=== PATIENT | male | born 1990 | race Caucasian/White ===

== ENCOUNTER 2021-04-28 11:37 | Emergency (ER) | payer OTHER ==
[2021-04-28 11:50] VITALS: BP 133/73; PULSE 74; TEMP 98.9; BMI 29.0
[2021-04-28] MEDS ORDERED: ONDANSETRON 4 MG/2 ML VIAL IVPUSH ONE (12:29)
[2021-04-28] MEDS ORDERED: IBUPROFEN 600 MG TABLET (FP) PO ONE (12:30)
[2021-04-28] MEDS ORDERED: SODIUM CHLORIDE 0.9% 500 ML INFUS.BAG IV ONE (12:30)
[2021-04-28] MEDS ORDERED: ONDANSETRON 4 MG/2 ML VIAL ONE (12:45)
[2021-04-28] MEDS ORDERED: IBUPROFEN 400 MG TABLET (FP) PO ONE (12:45)
== END 2021-04-28 14:30 | disposition home or self-care (01) ==
LOC: JER 11:37
PROC: 3E033NZ Introduction of Analgesics, Hypnotics, Sedatives into Peripheral Vein, Percutaneous Approach (ICD-10-PCS; principal; 2021-04-28)
DX: K52.9 Noninfective gastroenteritis and colitis, unspecified (principal)
CPT/HCPCS: 87804; 96374; 99284-25; C9803; U0003; U0005

== ENCOUNTER 2022-02-28 22:42 | Emergency (ER) | payer OTHER ==
[2022-02-28 22:58] VITALS: BP 122/65; PULSE 105; RESP 20; TEMP 99.9; BMI 30.4
== END 2022-03-01 01:23 | disposition home or self-care (01) ==
LOC: JER 22:42
DX: B34.9 Viral infection, unspecified (principal)
CPT/HCPCS: 0241U-QW; 99283-25